=== PATIENT | female | born 1985 | race African-American/Black ===

== ENCOUNTER 2017-08-02 13:08 | Outpatient (CLI) | payer BC, OTHER ==
[2017-08-02 14:25] LABS: BASOPHILS % (AUTO) 0.3 % (0.0-2.0); EOSINOPHILS # (AUTO) 0.1 K/uL (0.0-0.7); EOSINOPHILS % (AUTO) 0.7 % (0.0-7.0); HEMOGLOBIN 10.8 g/dL (10.9-14.3); LYMPHOCYTES # (AUTO) 1.5 K/uL (20.0-40.0); LYMPHOCYTES % (AUTO) 17.7 % (20.5-51.5); MEAN CORPUSCULAR HEMOGLOBIN 28.8 uug (24.7-32.8); MEAN CORPUSCULAR HGB CONC 34 g/dL (32.3-35.6); MEAN CORPUSCULAR VOLUME 85.2 fL (75.5-95.3); MONOCYTES # (AUTO) 0.9 K/uL (2.0-10.0); MONOCYTES % (AUTO) 11.3 % (0.0-11.0); NEUTROPHILS # (AUTO) 5.8 K/uL (1.8-8.9); PLATELET COUNT (AUTO) 296 K/uL (179-408); RED BLOOD CELL COUNT(AUTO) 3.76 MIL/uL (3.63-4.92); WHITE BLOOD COUNT (AUTO) 8.3 K/uL (3.8-11.8)
[2017-08-03 06:06] LABS: HEPATITIS B SURFACE AG Negative (Negative)
[2017-08-03 10:11] LABS: RUBELLA AB, IgG 5.38 index (Immune >0.99)
== END 2017-08-02 23:59 | disposition home or self-care (01) ==
LOC: LAB 13:08
PROVIDERS: ATTEND Obstetrics & Gynecology
DX: O99.285 Endocrine, nutritional and metabolic diseases complicating the puerperium (principal); O99.619 Diseases of the digestive system complicating pregnancy, unspecified trimester; E84.19 Cystic fibrosis with other intestinal manifestations; Z3A.00 Weeks of gestation of pregnancy not specified
CPT/HCPCS: 36415; 84443; 85025; 86592; 86704; 86762; 86850; 86900; 86901; 87340; 87806

== ENCOUNTER 2019-11-24 11:47 | Outpatient (CLI) | payer BC, OTHER ==
[2019-11-24 12:38] LABS: BASOPHILS % (AUTO) 0.6 % (0.0-2.0); EOSINOPHILS % (AUTO) 0.6 % (0.0-7.0); HEMATOCRIT 35.2 % (31.2-41.9); HEMOGLOBIN 11.5 g/dL (10.9-14.3); LYMPHOCYTES # (AUTO) 1.9 K/uL (20.0-40.0); LYMPHOCYTES % (AUTO) 29.1 % (20.5-51.5); MEAN CORPUSCULAR HEMOGLOBIN 26.9 uug (24.7-32.8); MEAN CORPUSCULAR HGB CONC 33 g/dL (32.3-35.6); MEAN CORPUSCULAR VOLUME 81.9 fL (75.5-95.3); MONOCYTES # (AUTO) 0.5 K/uL (2.0-10.0); MONOCYTES % (AUTO) 7.2 % (0.0-11.0); NEUTROPHILS % (AUTO) 62.5 % (38.5-71.5); PLATELET COUNT (AUTO) 250 K/uL (179-408); RED BLOOD CELL COUNT(AUTO) 4.29 MIL/uL (3.63-4.92); WHITE BLOOD COUNT (AUTO) 6.4 K/uL (3.8-11.8)
[2019-11-25 05:59] LABS: HEPATITIS B SURFACE AG Negative (Negative)
[2019-11-25 13:18] LABS: RUBELLA AB, IgG 6.48 index (Immune >0.99)
== END 2019-11-24 23:59 | disposition home or self-care (01) ==
LOC: LAB 11:47
PROVIDERS: ATTEND Obstetrics & Gynecology
DX: N91.0 Primary amenorrhea (principal); Q99.2 Fragile X chromosome; Z20.2 Contact with and (suspected) exposure to infections with a predominantly sexual mode of transmission; Z33.1 Pregnant state, incidental; Z31.430 Encounter of female for testing for genetic disease carrier status for procreative management
CPT/HCPCS: 36415; 84443; 85025; 86592; 86762; 86803; 86850; 86900; 86901; 87340; 87806

== ENCOUNTER 2020-03-18 11:44 | Outpatient (CLI) | payer BC, OTHER | END 2020-03-18 23:59 | disposition home or self-care (01) | LOC: LAB 11:44 | PROVIDERS: ATTEND Obstetrics & Gynecology | DX: Z75.3 Unavailability and inaccessibility of health-care facilities (principal) ==